=== PATIENT | female | born 1970 | race Caucasian/White ===

== ENCOUNTER 2019-02-01 21:53 | Emergency (ER) | payer SELFPAY ==
[2019-02-01 21:57] VITALS: BP 140/82; PULSE 88; RESP 18; TEMP 36.6; O2SAT 100
--- NOTE | 2019-02-01 22:24 | W.ED.GENAD ---
Discharge Plan Disposition Patient Disposition: HOME Condition: Good Discharge Details Chief Complaint: HeadInjury Clinical Impression: Fall from ground level, Laceration of scalp, Hematoma of scalp Primary Care Provider: Ainsley Martel V ED Provider: Abner Iniguez Home Meds and New Rx's Prescriptions: No Action No Known Home Meds RF: 0 Discharge Instructions Additional Instructions: CAT scan of your head is negative for intracranial injury or skull fracture. You have a scalp hematoma which should get better over time. Ice will help with the swelling. Acetaminophen or ibuprofen as needed for pain. Laceration has been closed with 3 leonides. Please return in 10 to 14 days for removal. If you develop increasing pain, swelling, drainage, fever return for evaluation for possible infection. Referrals: [facility] [Provider Group] Medical Decision Making Patient here with scalp laceration/hematoma status post fall striking pavement. Spine is cleared clinically. No other injury. Denies loss of consciousness but has significant hematoma so we will get a head CT. Tetanus updated here. Head CT is negative. Laceration is anesthetized with 1% lidocaine with epinephrine. Wound irrigated and explored. 3 leonides applied. Patient tolerated well. Patient discharged home. She is instructed to use ice to help with the swelling of the hematoma. Ibuprofen or acetaminophen for pain. Watch for signs of infection. Return to ED in 10 to 14 days for staple removal. HPI General Mode of arrival: EMS. Date/Time Provider Initiated Documentation: 02/01/19 22:10. Limitations to Documentation: no limitations. Information obtained by: patient and RN notes reviewed. HPI Narrative: Patient presents to ED status post fall. She was walking a dog when it took off after another dog. Leash tangled her up and caused her to fall. She struck her head on the pavement. She did not have loss of consciousness. She did sustain laceration. She denies headache. She denies neck or back pain. She denies chest pain or shortness of breath. She denies having any neurologic symptoms. There is no nausea or vomiting. Related Data Home Medications Medication Instructions Recorded Confirmed Unknown [No Known Home Meds] 02/01/19 02/01/19 Allergies Allergy/AdvReac Type Severity Reaction Status Date / Time Sulfa (Sulfonamide Allergy Verified 02/01/19 23:19 Antibiotics) General Stated Complaint: HeadInjury YARELI: 3 Review of Systems Review of Systems As documented in HPI otherwise negative as below. Const: no fever, chills, weakness Resp: no cough, SOB, pleuritic pain CV: no CP, diaphoresis, edema, syncope GI: no abdominal pain, nausea, vomiting, diarrhea Neuro: no headache, numbness, focal weakness, confusion [facility] Surgical History History of section (Chronic) Social History Do you feel safe at home: Yes Do you feel safe in your relationship?: Yes Exam Narrative Exam Narrative: Vitals: Afebrile. Vitals are normal. Const: Obese female in NAD. HEENT: NC. Left sided scalp hematoma/laceration. Normal facial exam. Eyes: Normal conjunctiva and sclera. PERRL and EOMI. Neck: Supple. Trachea midline. No c-spine pain. Lungs: Normal respiratory effort. Lungs are clear. No chest wall tenderness. Cor: RRR without murmur/gallop. Good radial pulses. GI: Soft. NT/ND. No guarding or rebound. Back: No spinal tenderness. Neuro: A+O x 3. CN grossly in tact. Good strength and no focal deficit. Ext: No C/C/E. No deformity or tenderness. Skin: Scalp laceration. Course Vital Signs Temperature 97.9 F 02/01/19 21:57 Pulse 88 02/01/19 21:57 Respiratory Rate 18 02/01/19 21:57 Blood Pressure 140/82 02/01/19 21:57 Pulse Oximetry 100 02/01/19 21:57 Temperature 97.9 F 02/01/19 21:57 Temperature Source Skin 02/01/19 21:57 Pulse 88 02/01/19 21:57 Respiratory Rate 18 02/01/19 21:57 Respiratory Effort Non-Labored 02/01/19 22:01 Blood Pressure 140/82 02/01/19 21:57 Blood Pressure Position Sitting 02/01/19 21:57 Pulse Oximetry 100 02/01/19 21:57 Oxygen Delivery Method Room Air 02/01/19 21:57 Oxygen Flow Rate 0 02/01/19 21:57 Procedures Laceration Laceration 1: Site: scalp Side (If applicable): left Size (cm): 1 Description: stellate Depth: simple, single layer Local Anesthetic: Lidocaine 1% and with Epi Amount of anesthesia used (mL): 1 Pre-repair: wound explored and irrigated extensively Skin layer closed with: other (leonides) Number of sutures: 3
--- NOTE | 2019-02-01 22:40 | DI.CT_ITS ---
SYMPTOM/DIAGNOSIS: FELL. HIT HEAD NONCONTRAST HEAD CT: A noncontrast cranial CT was performed. Note is made of an apparent left parietal scalp contusion. No underlying calvarial fracture. The orbital and temporal bone structures appear intact. Paranasal sinuses and mastoid air cells are well aerated. No evidence of acute intracranial hemorrhage, mass effect or midline shift. CONCLUSION: No evidence of acute intracranial injury.
--- NOTE | 2019-02-01 22:49 | DI.VRAD_ITS ---
EXAM: CT Head Without Contrast EXAM DATE/TIME: 02/01/2019 10:12 PM CLINICAL HISTORY: 48 years old, female; Injury or trauma; Fall; Initial encounter; Blunt trauma (contusions or hematomas) and laceration; Consciousness not specified; Without residual foreign body; Scalp; Injury date: 02/01/2019 TECHNIQUE: Imaging protocol: Computed tomography images of the head without contrast. Coronal and sagittal reformatted images were created and reviewed. Radiation optimization: All CT scans at this facility use at least one of these dose optimization techniques: automated exposure control; mA and/or kV adjustment per patient size (includes targeted exams where dose is matched to clinical indication); or iterative reconstruction. COMPARISON: No relevant prior studies available. FINDINGS: Brain: Typical for age. No hemorrhage. No evidence of acute infarct. No mass. Ventricles: No ventriculomegaly. Bones/joints: Unremarkable. Sinuses: No sinus fluid. Mastoid air cells: Unremarkable. Soft tissues: Small scalp hematoma. IMPRESSION: No acute intracranial abnormality. Dictated and Authenticated by: Cam Velez MD. Ordering:RONNY Levine MD
[2019-02-01 23:19] VITALS: BP 140/82; PULSE 88; RESP 18; TEMP 36.6; O2SAT 100
== END 2019-02-01 23:23 | disposition home or self-care (01) ==
PROVIDERS: Emergency Provider Emergency Medicine; PCP Family Medicine
DX: S01.01XA Laceration without foreign body of scalp, initial encounter (principal); W01.198A Fall on same level from slipping, tripping and stumbling with subsequent striking against other object, initial encounter; Y93.K1 Activity, walking an animal
CPT/HCPCS: 12001; 90471; 99284; 70450; 99281

== ENCOUNTER 2019-02-10 15:16 | Emergency (ER) | payer SELFPAY ==
[2019-02-10 15:30] VITALS: BP 143/79; PULSE 78; RESP 16; TEMP 36.7; O2SAT 98
--- NOTE | 2019-02-10 16:45 | W.ED.GENAD ---
Discharge Plan Disposition Patient Disposition: HOME Condition: Good Discharge Details Chief Complaint: SutureRem Clinical Impression: Encounter for staple removal Primary Care Provider: Ainsley Martel V ED Provider: Ronny Lopez Home Meds and New Rx's Prescriptions: No Action No Known Home Meds RF: 0 Discharge Instructions Instructions: Staple Care (ED) Additional Instructions: Continue to keep wound clean and dry and return to the emergency department for any new or significant worsening of symptoms. Otherwise follow-up with your primary care provider as needed for reassessment. Referrals: Ainsley Martel MD [Primary Care Provider] - Discharge Data Discharge Date/Time-TO BE ENTERED AT DEPARTURE: 02/10/19 16:49 Medical Decision Making Patient presenting the emergency department for removal of leonides. Patient had a fall involving a dog and suffered a small laceration to the head. staff respiratory therapist removed 3 leonides from the head and wound was visualized and appears to be healing well. No other worrisome symptoms are noted by patient. Patient informed to watch for any signs of infection or new or worsening symptoms return if these occur otherwise follow-up with primary care as needed. HPI General Mode of arrival: ambulatory. Date/Time Provider Initiated Documentation: 02/10/19 15:53. Limitations to Documentation: no limitations. Information obtained by: patient, RN notes reviewed and old records reviewed. History of Present Illness 48 year old F presents to the emergency department with the chief complaint of Staple removal, Patient started experiencing this day(s) (9) Patient notes no other symptoms.. Patient did receive the following treatments prior to arrival, none Related Data Home Medications Medication Instructions Recorded Confirmed Unknown [No Known Home Meds] 02/01/19 02/01/19 Allergies Allergy/AdvReac Type Severity Reaction Status Date / Time Sulfa (Sulfonamide Allergy Verified 02/01/19 23:19 Antibiotics) General Stated Complaint: SutureRem YARELI: 4 Review of Systems Constitutional Denies chills and Denies fever(s) Musculoskeletal Denies arthralgias Integumentary/Breasts Denies rash and Denies skin swelling [facility] Social History Smoking/Tobacco Use Status: Never Drug use: Never Substance use type: does not use Do you feel safe at home: Yes Do you feel safe in your relationship?: Yes Exam Const General: cooperative, comfortable and no acute distress Orientation: alert, awake and oriented x3 Skin Rashes: no rashes Trauma: laceration (well healing scalp laceration without erythema, purulence, or dehiscence.) Course Vital Signs Temperature 36.7 C 02/10/19 15:30 Pulse 78 02/10/19 15:30 Respiratory Rate 16 02/10/19 15:30 Blood Pressure 143/79 H 02/10/19 15:30 Pulse Oximetry 98 02/10/19 15:30 Temperature 36.7 C 02/10/19 15:30 Temperature Source Temporal Artery Scan 02/10/19 15:30 Pulse 78 02/10/19 15:30 Respiratory Rate 16 02/10/19 15:30 Blood Pressure 143/79 H 02/10/19 15:30 Blood Pressure Position Supine 02/10/19 15:30 Pulse Oximetry 98 02/10/19 15:30 Oxygen Delivery Method Room Air 02/10/19 15:30 Oxygen Flow Rate 0 02/10/19 15:30
== END 2019-02-10 16:49 | disposition home or self-care (01) ==
PROVIDERS: Emergency Provider Nurse Practitioner Family; PCP Family Medicine
DX: S01.81XD Laceration without foreign body of other part of head, subsequent encounter (principal); W45.8XXD Other foreign body or object entering through skin, subsequent encounter; Z48.02 Encounter for removal of sutures

== ENCOUNTER 2020-08-28 13:32 | Emergency (ER) | payer SELFPAY ==
--- NOTE | 2020-08-28 13:42 | ED.GENADUL_ITS ---
Discharge Plan Disposition Patient Disposition: HOME Condition: Stable Discharge Details Clinical Impression: Chronic pain in left foot Primary Care Provider: None,None ED Provider: Ellen Hernandez Home Meds and New Rx's Prescriptions: No Action No Known Home Meds RF: 0 Discharge Instructions Instructions: Chronic Pain (ED), Arthralgia (ED) Additional Instructions: Rest, ice, and elevate the affected area as much as possible. Alternate tylenol and motrin as needed and directed for pain. Wear the Aris wrap as needed to help with compression and pain. Call the core assembly supervisor on Monday to schedule a follow-up appointment for reevaluation and for consideration for additional imaging or physical therapy if pain persists or worsens Return immediately to the emergency department if you develop any worsening or new concerning symptoms. Referrals: Jeremy Patterson DPM [[facility] STAFF PHYSICIAN] - Discharge Data Discharge Physician: Ellen Hernandez Medical Decision Making 50-year-old female presents with left foot pain for the past several months, worse today. Pain worse with weightbearing. Points to left mid dorsal foot as main area of pain but also the heel. There is some tenderness palpation to this area in addition to the heel. There is no evidence of cellulitis or trauma. Normal palpation to left ankle. She is neurovascularly intact Differential diagnosis includes strain versus sprain, stress fracture, heel spur, plantar fasciitis. Patient referred for x-ray which was negative. She declined medication for pain Patient given Dr. Patterson's information for follow-up. She is advised to rest, ice, elevate and use Aris wrap for compression. Advised to call Dr. Patterson's office on Monday for follow-up for reevaluation and for referral for additional imaging or physical therapy if symptoms do not improve or worsen Imaging Data Radiologic Study: Radiologist's impression: XR FOOT LT COMPLETE CLINICAL HISTORY: L foot pain, r/o fx. TECHNIQUE: 2D digital imaging was performed. COMPARISON: No exams were available for comparison FINDINGS: BONES: No acute fracture is present. No bony destructive lesion is seen. There is a large plantar calcaneal spur. JOINTS: No dislocation present. SOFT TISSUE: Soft tissue swelling of the foot is noted. No radiopaque foreign bodies. IMPRESSION: No acute fracture or dislocation. HPI General Mode of arrival: ambulatory . Date/Time Provider Initiated Documentation: 08/28/20 13:42 . Limitations to Documentation: no limitations . Information obtained by: patient . HPI Narrative: Patient is a 50-year-old female with a history of obesity and no other diagnosed medical history presents for left foot pain for the last several months, worse today. Patient states the pain is on the mid dorsal portion of her foot that is worse with weightbearing and walking. She denies any known injury. She denies any pain in her hip, knee or ankle. Related Data Home Medications Medication Instructions Recorded Confirmed Unknown [No Known Home Meds] 02/01/19 08/28/20 Allergies Allergy/AdvReac Type Severity Reaction Status Date / Time Sulfa (Sulfonamide Allergy Verified 08/28/20 14:24 Antibiotics) General YARELI: 4 Review of Systems All systems reviewed & are unremarkable except as noted in HPI and below Constitutional Constitutional: Reports as per HPI, Denies chills and Denies fever(s) Eyes Eyes: Denies blurry vision ENT Ears, Nose, Mouth, and Throat: Denies dizziness, Denies sore throat and Denies throat swelling Cardiovascular Cardiovascular: Denies chest pain and Denies dyspnea Respiratory Respiratory: Denies cough and Denies dyspnea Gastrointestinal Gastrointestinal: Denies abdominal pain, Denies diarrhea and Denies vomiting Genitourinary Genitourinary: Denies hematuria and Denies dysuria Musculoskeletal Musculoskeletal: Denies back pain and Denies numbness Comments: Left foot pain Integumentary/Breasts Skin/Breast: Denies lesions and Denies rash Neurologic Neurologic: Denies dizziness, Denies localized weakness and Denies numbness Allergic/Immunologic Allergic/Immunologic: Denies throat swelling [facility] Surgical History History of section Social History Smoking/Tobacco Use Status: Never Smoking risk assessment performed?: Yes Drug use: Never Substance use type: does not use Do you feel safe at home: Yes Do you feel safe in your relationship?: Yes Exam Const General: cooperative, healthy appearing and no acute distress HENMT Head: normal to inspection Mouth: oral mucosae normal Eyes General: appearance normal, both eyes and all related structures Neck Neck: normal visual inspection Resp Effort & Inspection: normal respiratory effort and able to speak in complete sentences Cardio Rate: regular rate Skin General skin exam: no rashes or lesions noted Neuro General: patient alert, patient awake and patient oriented x3 Motor: muscle tone normal throughout Extrem Ankle/foot/toe images: 1. Tenderness to palpation to dorsal midfoot and heel. There is no surrounding erythema, edema, ecchymosis. Left DP/PT pulses intact. Other: No tenderness palpation to left lower leg, left medial or lateral malleolus. No deformities noted. No crepitus. Psych Appearance: grossly normal Affect: normal affect
[2020-08-28 13:58] VITALS: BP 155/89; PULSE 82; RESP 16; TEMP 36.6; O2SAT 100
--- NOTE | 2020-08-28 14:12 | DI.RAD_ITS ---
EXAM: XR FOOT LT COMPLETE CLINICAL HISTORY: L foot pain, r/o fx. TECHNIQUE: 2D digital imaging was performed. COMPARISON: No exams were available for comparison FINDINGS: BONES: No acute fracture is present. No bony destructive lesion is seen. There is a large plantar leola caneal spur. JOINTS: No dislocation present. SOFT TISSUE: Soft tissue swelling of the foot is noted. No radiopaque foreign bodies. IMPRESSION: No acute fracture or dislocation. DATA REPOSITORY: RADIATION DOSE DELIVERED:
== END 2020-08-28 15:38 | disposition home or self-care (01) ==
PROVIDERS: Emergency Provider Physician Assistant
DX: M25.572 Pain in left ankle and joints of left foot (principal); G89.29 Other chronic pain
CPT/HCPCS: 99283; 73630

== ENCOUNTER 2025-01-30 06:15 | Emergency (ER) | payer SELFPAY ==
[2025-01-30] VITALS (58 sets, daily range): BP systolic 132–158; BP diastolic 47–88; PULSE 63–79; RESP 13–24; TEMP 36.5; O2SAT 93–100
--- NOTE | 2025-01-30 06:15 | DI.RAD_ITS ---
Exam(s) XR PORTABLE CHEST AP EXAM: XR PORTABLE CHEST AP CLINICAL HISTORY: SOB, L chest pain, trauma TECHNIQUE: 2D digital imaging was performed of the chest. One image was obtained. An AP view was obtained. COMPARISON: CR CHEST 2 VIEWS PA,LAT from 01/07/2008 FINDINGS: There is poor inspiration. MEDIASTINUM: Normal. HEART: The heart is at the upper limits of normal to mildly enlarged given the AP projection. PULMONARY VASCULATURE: There is mild pulmonary venous congestion. LUNGS: There are no focal consolidating infiltrates. PLEURAL SPACE: No pleural effusion or pneumothorax. BONE:Within normal limits for the patient's age. OTHER FINDINGS:Normal. IMPRESSION: 1. Mild pulmonary venous congestion. 2. No focal consolidating infiltrates. 3. The preliminary [facility] report was reviewed. DATA REPOSITORY: RADIATION DOSE DELIVERED:
--- NOTE | 2025-01-30 06:15 | RT.EKG_ITS ---
APPROVED REPORT Exam: Resting ECG Reason for Exam: SOB Patient Location: E HR:71 bpm ECG Measurements Heart Rate 71 AXIS WY 159 P 49 QRSd 92 QRS 53 QT 394 T 57 QTc 430 Conclusion Sinus rhythm...normal P axis, V-rate 60- 99 Probable left atrial enlargement...P >50mS, <-0.10mV V1 I have reviewed and interpreted ECG and agree with software generated interpretation.
--- NOTE | 2025-01-30 06:35 | ED.GENADUL_ITS ---
Discharge Plan Discharge Details Chief Complaint: SOB Clinical Impression: Left-sided chest wall pain Primary Care Provider: None,None ED Provider: Young Thompson Home Meds and New Rx's Prescriptions: No Action No Known Home Meds Discharge Instructions Instructions: Chest Pain, Adult ED Additional Instructions: At this time your x-ray shows no evidence of rib fracture of significant size, p opped lung or other major abnormality. Your laboratory workup shows no signs of heart attack. I am concerned that you may have injured your rib or the connective tissues between them to cause the current symptoms that you have. Please take Tylenol and Motrin as needed for pain. You can take 1000 mg of Tylenol every 6 hours or 800 mg of Motrin every 6 hours. These are the maximum doses. These medications can be taken together. If you notice any worsening of your symptoms, or any new symptoms such as vomiting, diarrhea, fever, chills, shortness of breath, chest pain, numbness, weakness, or fainting , please return immediately to the emergency department for reevaluation. Please follow up with your primary care provider as soon as possible for reassessment and reevaluation. As always, it was a pleasure participating in your medical care today. HPI General Date/Time Provider Initiated Documentation: 01/30/25 06:25 . HPI Narrative: This is a pleasant 54-year-old female who denies any significant past medical history, who does not smoke, who does have a family history of cardiac disease, was a current BMI of 62, who presents today for evaluation of left chest pain. 5 days ago the patient was leaning up against a truck bed and felt a pop in her left lower lateral rib area. She had mild achiness at that time which continued for the next 4 days. However this morning she woke up with severe pain in the left chest whenever she tried to move. Is also slightly worse with taking a deep breath. She denies any reproducibility to the pain though, and states that she can touch the area without any worsening pain. She denies recent long trips surgeries or procedures. She denies cough or fever or chills. No hemoptysis. No other complaints at this time. The pain is aching and stabbing in the left chest. Related Data Home Medications ?Medication ?Instructions ?Recorded ?Confirmed Unknown [No Known Home Meds] 02/01/19 0 01/30/25 Allergies Allergy/AdvReac Type Severity Reaction Status Date / Time Sulfa (Sulfonamide Allergy Unknown Verified 01/30/25 06:31 Antibiotics) General Stated Complaint: SOB YARELI: 2 Exam Narrative Exam Narrative: 1.Const: Well-nourished, Well-developed, appearing stated age 2.Eyes: PERRL, no conjunctival injection, and symmetrical lids. 3.ENT: Atraumatic external nose and ears. Moist MM. Neck: Symmetric, trachea midline, No thyromegaly. 4.CVS: +S1/S2, Peripheral pulses 2+ and equal in all extremities. Brisk capillary refill in all extremities. 5.RESP: Unlabored respiratory effort. Clear to auscultation bilaterally. No wheezes rales or rhonchi. No reproducibility of chest pain on palpation of the left chest 6.GI: Soft, Nontender/Nondistended, No hepatosplenomegaly. No guarding or rebound. 7.MSK: Normocephalic/Atraumatic, Extremities w/o deformity or ttp No cyanosis or clubbing, Normal movement of all extremities 8.Skin: Warm, Dry. No rashes or lesions. 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 Sensation grossly intact, no focal neurologic deficits. 10.Psych: (AAO) x3. Appropriate mood and affect Course Vital Signs Vital signs: Vital Signs Temperature 36.5 C 01/30/25 06:20 Pulse 76 01/30/25 06:20 Respiratory Rate 24 01/30/25 06:20 Pulse Oximetry 100 01/30/25 06:20 Temperature 36.5 C 01/30/25 06:20 Temperature Source Oral 01/30/25 06:20 Pulse 76 01/30/25 06:20 Respiratory Rate 16 01/30/25 06:27 Respiratory Effort Short of Breath, Pursed Lip, Incrsd Work of Breathing 01/30/25 06:27 Respiratory Depth Shallow 01/30/25 06:27 Respiratory Pattern Tachypnea 01/30/25 06:27 Blood Pressure 158/88 H 01/30/25 06:33 Blood Pressure Mean 111 01/30/25 06:33 Pulse Oximetry 100 01/30/25 06:20 Pain Level 10 01/30/25 06:20 Medical Decision Making This is a pleasant 54-year-old female who denies any significant past medical history, who does not smoke, who does have a family history of cardiac disease, was a current BMI of 62, who presents today for evaluation of left chest pain. 5 days ago the patient was leaning up against a truck bed and felt a pop in her left lower lateral rib area. She had mild achiness at that time which continued for the next 4 days. However this morning she woke up with severe pain in the left chest whenever she tried to move. Is also slightly worse with taking a deep breath. She denies any reproducibility to the pain though, and states that she can touch the area without any worsening pain. She denies recent long trips surgeries or procedures. She denies cough or fever or chills. No hemoptysis. No other complaints at this time. The pain is aching and stabbing in the left chest. Exam demonstrates a well-appearing patient, however she is notably guarding with her breathing. She has no reproducibility of chest pain on palpation of the location where it is sore, but she states that it is easily reproduced when she starts to move. No unilateral edema of the lower extremities, or focal tendern ess there. No pitting edema of the lower extremities. Differential is broad but includes pneumothorax, rib fracture, or pulmonary embolism. Will evaluate for these etiologies, treat with Tylenol and Motrin as she has declined morphine, monitor closely and reassess. Cardiac etiology is also in the differential but less likely. EKG is benign with no evidence of STEMI 7:20 AM Initial laboratory workup has returned, no white count or bandemia, hemoglobin stable compared to her baseline at 10.3. No left shift. Pending D-dimer still. VBG shows mild alkalosis, with a minimal elevation at 7.42. No hypercarbia. Still pending electrolytes and proBNP. Chest x-ray shows no evidence of pneumothorax. There is an enlarged cardiac silhouette with some pulmonary vascular congestion, but the patient has no hypoxemia to suggest severe CHF exacerbation. Additionally her lungs are notably clear on auscultation with no crackles or rhonchi. Will wait for the remainder of the laboratory workup. Patient will be signed out to my colleague Dr. Brice. Additionally, the patient's pain is notably improved after the Toradol and Ofirmev. 80 3 AM Still pending repeat Trope. D-dimer is minimally elevated, and negative for the years criteria. Wells score is in the low risk category at 1.3%. Heart score is 2 points, in the low risk category. Symptoms appear notably clinically inconsistent with ACS. On reassessment the patient has complete resolution of her symptoms, she feels well. I suspect there is a musculoskeletal component as her clinical symptomatology is inconsistent clinically at this time with ACS, PE, pneumothorax or dissection. I do feel that if the patient's second troponin is negative, it would be stable for discharge home. FINDINGS: Lungs: Pulmonary vascular ingestion. Pleural spaces: No large pleural effusion seen. Heart/Mediastinum: Enlarged cardiac silhouette. Bones/joints: No acute abnormality. IMPRESSION: Enlarged cardiac silhouette with pulmonary vascular congestion. Correlate clinically for heart failure. Thank you for allowing us to participate in the care of your patient. Dictated and Authenticated by: Bianka Rivera MD 01/30/2025 6:47 AM Eastern Time ([place] & [place] PFSH All Active Problems (Updated 01/30/25 @ 07:23 by Young Thompson DO) Left-sided chest wall pain (Acute) Chronic pain in left foot (Acute) Surgical History History of section Social History Smoking/Tobacco Use Status: Never Smoking risk assessment performed?: Yes Alcohol Intake: current Alcohol Intake frequency: holidays/special occasions only Alcohol type: other Drug use: Never Substance use type: does not use Housing: apartment Do you feel safe at home: Yes Do you feel safe in your relationship?: Yes
--- NOTE | 2025-01-30 06:47 | DI.VRAD_ITS ---
PROCEDURE INFORMATION: Exam: XR Chest Exam date and time: 01/30/2025 6:40 AM Age: 54 years old Clinical indication: Pain and injury or trauma; Fall; Shortness of breath; Blunt trauma (contusions or hematomas); Left-sided; Injury date: 01/29/25; SOB, L chest pain, trauma TECHNIQUE: Imaging protocol: Radiologic exam of the chest. Views: 1 view. COMPARISON: No relevant prior studies available. FINDINGS: Lungs: Pulmonary vascular ingestion. Pleural spaces: No large pleural effusion seen. Heart/Mediastinum: Enlarged cardiac silhouette. Bones/joints: No acute abnormality. IMPRESSION: Enlarged cardiac silhouette with pulmonary vascular congestion. Correlate clinically for heart failure. Dictated and Authenticated by: Bianka Rivera MD. Orderin Donna Vidal MD
[2025-01-30] MEDS: Ketorolac 15 MG/ML VIAL IVP (06:48)
[2025-01-30] MEDS: ACETAMINOPHEN 1,000 MG/100 ML BAG 400 MG IVPB (06:48)
[2025-01-30 07:10] LABS: BE (Venous) 2 mmol/L (-2-3); HCO3 (Venous) 27 mmol/L (23-28); O2 Sat (Venous) 56 %; TCO2 (Venous) 25 mmol/L (24-29); pCO2 (Venous) 41 mmHg (41-51); pO2 (Venous) 30 mmHg
[2025-01-30 07:15] LABS: Abs Immature Grans 0.02 10^3/uL (0.0-0.06); HCT 32.9 % (36.0-46.0); HGB 10.3 g/dL (11.2-15.7); Immature Grans % 0.3 %; MCH 26.8 pg (27.0-33.0); MCHC 31.3 % (32.0-36.0); MCV 86 fL (80-95); MPV 9.8 fL (8.0-11.0); Platelet Count 371 10^3/uL (130-400); RBC 3.84 10^6/uL (3.93-5.22); RDW 14.6 % (11.7-14.6); RDW-SD 45.1 fL; WBC 6.11 10^3/uL (4.4-10.8)
[2025-01-30 07:27] LABS: INR 1.1 (0.9-1.1); PTT Activated 26.8 sec (20.6-30.2); Prothrombin Time 10.8 sec (9.1-11.1)
[2025-01-30 07:35] LABS: ALT 24 U/L (14-59); AST 20 U/L (15-37); Albumin 3.3 g/dL (3.4-5.0); Alkaline Phosphatase 153 U/L (46-116); Anion Gap 7.1 mmol/L (3-11); BUN 14 mg/dL (7-18); Bilirubin, Total 0.6 mg/dL (0.2-1.0); CO2 27.9 mmol/L (21.0-32.0); Calcium 9.1 mg/dL (8.5-10.1); Chloride 103 mmol/L (98-107); Estimated GFR 102.07 (mL/min/1.73m2); Glucose 101 mg/dL (74-106); NT-proBNP 437 pg/mL (<300); Potassium 3.9 mmol/L (3.5-5.1); Sodium 138 mmol/L (136-145); Total Protein 7.7 g/dL (6.4-8.2); Troponin I 9 ng/L (<or=51)
[2025-01-30 07:37] LABS: D-Dimer 611 ng/mlFEU (<500)
--- NOTE | 2025-01-30 08:01 | W.EDPROG ---
Date of service: 01/30/25 Time of Service: 08:01 Medical Decision Making Received signout on this 54-year-old female with history of elevated BMI and chest pain which is improved with acetaminophen and ketorolac. Initial troponin reassuring. Patient has reassuring heart score. A referral has been placed for a PCP. Will repeat troponin and reassess. HEART SCORE Chest pain Diagnostic Protocol: [-History/Physical/Gestalt: Slightly Suspicious (0)] [-EKG: Normal and/or unchanged from prior EKG (0)] [- AGE: 65 and older (+2)] [- AGE: 45-65 (+1)] [- RISK FACTORS: 1 - 2 risk factors (+1)] [-TROPONIN: <= normal limit (0)] - TOTAL SCORE: 2 - Risk Factors: DM, current or recent smoker, HTN, HLD, family hx of CAD, obesity - INTERPRETATION: With a total score of 3 or less, risk of major cardiac event within six weeks 1.7%, likely lower with two negative troponins. 9:09 AM Repeat troponin reassuring. Discharge Plan Disposition Patient Disposition: Home Discharge Details Clinical Impression: Left-sided chest wall pain Primary Care Provider: None,None ED Provider: Young Thompson Home Meds and New Rx's Prescriptions: No Action No Known Home Meds Discharge Instructions Instructions: Chest Pain, Adult ED Additional Instructions: At this time your x-ray shows no evidence of rib fracture of significant size, popped lung or other major abnormality. Your laboratory workup shows no signs of heart attack. I am concerned that you may have injured your rib or the connective tissues between them to cause the current symptoms that you have. Please take Tylenol and Motrin as needed for pain. You can take 1000 mg of Tylenol every 6 hours or 800 mg of Motrin every 6 hours. These are the maximum doses. These medications can be taken together. If you notice any worsening of your symptoms, or any new symptoms such as vomiting, diarrhea, fever, chills, shortness of breath, chest pain, numbness, weakness, or fainting , please return immediately to the emergency department for reevaluation. Please follow up with your primary care provider as soon as possible for reassessment and reevaluation. As always, it was a pleasure participating in your medical care today.
[2025-01-30 08:22] LABS: Troponin I 9 ng/L (<or=51)
== END 2025-01-30 08:58 | disposition home or self-care (01) ==
PROVIDERS: Emergency Provider Student in an Organized Health Care Education/Training Program
DX: R07.89 Other chest pain (principal); R06.02 Shortness of breath; E66.01 Morbid (severe) obesity due to excess calories; Z68.44 Body mass index [BMI] 60.0-69.9, adult
CPT/HCPCS: 00123; 36415; 80053; 82805; 93005; 96365; 96375; 99284; 71045; 83880; 84484; 85025; 85379; 85610; 85730; 93010; J0131; J1885